=== PATIENT | male | born 1975 | race Caucasian/White ===

== ENCOUNTER 2017-01-20 20:23 | Emergency (ER) | payer OTHER ==
[2017-01-20 20:31] VITALS: BP 153/92
--- NOTE | 2017-01-20 20:37 | UC ---
Abdominal Pain Male HPI - HPI Summary HPI Summary: 41 year old male presents with severe epigastric abdominal pain. I will send him to the ER to rule out acute abdomen. - History of Current Complaint Chief Complaint: UCGI Stated Complaint: ABD PAIN,NAUSEA Time Seen by Provider: 01/20/17 20:37 - Allergies/Home Medications Allergies/Adverse Reactions: Allergies Allergy/AdvReac Type Severity Reaction Status Date / Time No Known Allergies Allergy Verified 01/20/17 20:31 Home Medications: Home Medications Fluticasone-Salmeterol 100-50* [Advair Diskus 100-50*] 1 puff INH WEEKLY [History Confirmed 01/20/17] Ibuprofen TAB* [Advil TAB*] 400 mg PO Q6H PRN 01/20/17 [History Confirmed ] PMH/Surg Hx/FS Hx/Imm Hx - Surgical History Surgical History: None - Social History Alcohol Use: None Substance Use Type: None Smoking Status (MU): Never Smoked Tobacco Review of Systems Constitutional: Negative Skin: Negative Eyes: Negative ENT: Negative Respiratory: Negative Cardiovascular: Negative Gastrointestinal: Abdominal Pain, Nausea Genitourinary: Negative Motor: Negative Neurovascular: Negative Musculoskeletal: Negative Neurological: Negative Psychological: Negative All Other Systems Reviewed And Are Negative: Yes Physical Exam Triage Information Reviewed: Yes Vital Signs: Initial Vital Signs Temp 36.9 C 01/20/17 20:28 Pulse 74 01/20/17 20:28 Resp 18 01/20/17 20:28 BP 153/92 01/20/17 20:28 Pulse Ox 99 01/20/17 20:28 Eye Exam: Normal ENT Exam: Normal Dental Exam: Normal Neck exam: Normal Neck: Positive: 1 Respiratory Exam: Normal Cardiovascular Exam: Normal Abdomen Description: Positive: Guarding Musculoskeletal Exam: Normal Neurological Exam: Normal Psychological Exam: Normal Skin Exam: Normal Abd Pain Male Course/Dx - Differential Dx/Clinical Impression Provider Diagnoses: severe abdominal pain. acute abdomen Discharge - Discharge Plan Condition: Stable Disposition: AGAINST MEDICAL ADVICE Referrals: No Primary Care Phys,NOPCP [Primary Care Provider] -
== END 2017-01-20 20:50 | disposition left against medical advice (07) ==
LOC: UCEAST 20:23
DX: R10.13 Epigastric pain (principal); R10.0 Acute abdomen
CPT/HCPCS: 99202; G0463

== ENCOUNTER 2017-01-20 21:04 | Emergency (ER) | payer OTHER ==
[2017-01-20] MEDS ORDERED: Ondansetron INJ* 2 MG/ML VIAL IV ONE (22:24)
[2017-01-20] MEDS ORDERED: NS 0.9% 1000 ML* 1,000 ML IV ONE (22:24)
[2017-01-20] MEDS ORDERED: Morphine INJ* 4 MG/ML 1 ML SYRINGE IV ONE (22:24)
[2017-01-20] MEDS ORDERED: Pantoprazole IV* 40 MG IV ONE (22:32)
[2017-01-20 22:34] LABS: Hematocrit 47 % (42-52); Hemoglobin 16.3 g/dl (14.0-18.0); Mean Corpuscular HGB Conc 35 g/dl (31-36); Mean Corpuscular Hemoglobin 32 pg (27-31); Mean Corpuscular Volume 93 fL (80-94); Mean Platelet Volume 8 um3 (7.4-10.4); Red Blood Count 5.06 10^6/ul (4.0-5.4); Red Cell Distribution Width 12 % (10.5-15); White Blood Count 10.4 10^3/ul (3.5-10.8)
[2017-01-20 22:49] LABS: Albumin 4.2 g/dL (3.2-5.2); BUN/Creatinine Ratio 13.9 (8-20); Calcium 9.4 mg/dL (8.6-10.3); EGFR Non-African American 70.8 (>60); Globulin 2.6 g/dL (2-4); Total Bilirubin 2.2 mg/dL (0.2-1.0); Total Protein 6.8 g/dL (6.4-8.9)
[2017-01-20 22:50] LABS: Troponin I 0.01 ng/mL (<0.04)
[2017-01-21] MEDS ORDERED: Iohexol 300* (CONTRAST) 10 ML SDV IV ONE (00:45)
[2017-01-21] MEDS ORDERED: Ondansetron INJ* 2 MG/ML VIAL IV ONE (00:55)
[2017-01-21] MEDS ORDERED: Ondansetron ODT TAB* 4 MG ONE (00:58)
[2017-01-21 02:01] LABS: Urine Bilirubin Negative (Negative); Urine Glucose Negative (Negative); Urine Nitrite Negative (Negative)
--- NOTE | 2017-01-21 02:22 | ED ---
Cortney Lau Alfonso, scribed for Alfredo Mendes on 01/20/17 at 2245 . Abdominal Pain/Male - HPI Summary HPI Summary: This patient is a 41 year old M presenting to [facility] with a chief complaint of diffuse abdominal pain since 2 days ago. The CC is described as an aching that is worse tonight. Pt rates the pain 6/10 in severity. Symptoms aggravated by eating and alleviated by nothing. Pt reports nausea, acid reflux, and loss of appetite. Pt denies fever, vomiting, and bowel symptoms. He reports his son had similar symptoms last week. Denies abdominal PSHx. PMHx of asthma. - History of Current Complaint Chief Complaint: EDAbdPain Stated Complaint: [facility]BD [facility] Time Seen by Provider: 01/20/17 21:25 Hx Obtained From: Patient Onset/Duration: Sudden Onset, Lasting Days - 2, Worse Since Timing: Constant Severity Initially: Moderate Severity Currently: Moderate Pain Intensity: 6 Pain Scale Used: 0-10 Numeric Location: Diffuse Character: Other: - Aching Aggravating Factor(s): Food Alleviating Factor(s): Nothing Associated Signs And Symptoms: Positive: Other - Pt reports nausea, acid reflux , and loss of appetite. Pt denies fever, vomiting, and bowel symptoms. - Allergies/Home Medications Allergies/Adverse Reactions: Allergies Allergy/AdvReac Type Severity Reaction Status Date / Time No Known Allergies Allergy Verified 01/20/17 20:31 PMH/Surg Hx/FS Hx/Imm Hx Respiratory History: Reports: Hx Asthma Sensory History: Denies: Hx Deafness Opthamlomology History: Denies: Hx Legally Blind Infectious Disease History: Yes Infectious Disease History: Denies: Traveled Outside the [place] in Last 30 Days - Family History Known Family History: Positive: Other - Cancer and asthma - Social History Alcohol Use: None Substance Use Type: Reports: Marijuana Substance Use Comment - Amount & Last Used: 1-2x/month Smoking Status (MU): Never Smoked Tobacco Review of Systems Negative: Fever Positive: Abdominal Pain, Nausea, Other - Positive loss of appetite and acid reflux; negative bowel symptoms. Negative: Vomiting All Other Systems Reviewed And Are Negative: Yes Physical Exam Triage Information Reviewed: Yes Vital Signs On Initial Exam: Initial Vitals Temp Pulse Resp BP Pulse Ox 98.3 F 85 20 158/93 100 01/20/17 21:30 01/20/17 21:30 01/20/17 21:30 01/20/17 21:30 01/20/17 21:30 Vital Signs Reviewed: Yes Appearance: Positive: Well-Appearing, No Pain Distress Skin: Positive: Warm, Skin Color Reflects Adequate Perfusion, Dry Head/Face: Positive: Normal Head/Face Inspection Eyes: Positive: EOMI, HIWOT ENT: Positive: Normal ENT inspection Neck: Positive: Supple, Nontender Respiratory/Lung Sounds: Positive: Clear to Auscultation, Breath Sounds Present Cardiovascular: Positive: RRR, Pulses are Symmetrical in both Upper and Lower Extremities Abdomen Description: Positive: Soft, Other: - Diffuse abdominal pain Bowel Sounds: Positive: Present Musculoskeletal: Positive: Normal, Strength/ROM Intact Neurological: Positive: Normal, Sensory/Motor Intact, Alert, Oriented to Person Place, Time - [place] Coma Scale Coma Scale Total: 15 Diagnostics - Vital Signs Vital Signs Temp Pulse Resp BP Pulse Ox 01/20/17 22:37 22 01/20/17 22:00 154/88 01/20/17 21:47 70 97 01/20/17 21:45 99.6 F 74 18 141/89 97 01/20/17 21:30 98.3 F 85 20 158/93 100 - Laboratory Lab Results: Lab Results 01/20/17 Range/Units 21:25 WBC 10.4 (3.5-10.8) 10^3/ul RBC 5.06 (4.0-5.4) 10^6/ul Hgb 16.3 (14.0-18.0) g/dl Hct 47 (42-52) % MCV 93 (80-94) fL MCH 32 H (27-31) pg MCHC 35 (31-36) g/dl RDW 12 (10.5-15) % Plt Count 238 (150-450) 10^3/ul MPV 8 (7.4-10.4) um3 Neut % (Auto) 75.7 (38-83) % Lymph % (Auto) 15.9 L (25-47) % [place] % (Auto) 7.1 (1-9) % Eos % (Auto) 1.0 (0-6) % Baso % (Auto) 0.3 (0-2) % Absolute Neuts (auto) 7.9 H (1.5-7.7) 10^3/ul Absolute Lymphs (auto) 1.7 (1.0-4.8) 10^3/ul Absolute Monos (auto) 0.7 (0-0.8) 10^3/ul Absolute Eos (auto) 0.1 (0-0.6) 10^3/ul Absolute Basos (auto) 0 (0-0.2) 10^3/ul Absolute Nucleated RBC 0.02 10^3/ul Nucleated RBC % 0.2 Result Diagrams: 01/20/17 21:25 01/20/17 21:25 Lab Statement: Any lab studies that have been ordered have been reviewed, and results considered in the medical decision making process. - CT A/P CT Interpretation Completed By: Radiologist - Questionable diarrheal illness without colonic wall inflammation. - EKG 2300 Cardiac Rate: NL - BPM 64 EKG Rhythm: Sinus Rhythm - Additional Comments Diagnostic Additional Comments: An US gallbladder reveals, per radiologist, a negative exam. Abdominal Pain Fem Course/Dx - Course Assessment/Plan: 41 year old M presents to the ED with a CC of diffuse abdominal pain since 2 days ago. Pt reports nausea, acid reflux, and loss of appetite. Pt denies fever, vomiting, and bowel symptoms. CT A/P reveals questionable diarrheal illness without colonic wall inflammation. An US gallbladder reveals, per radiologist, a negative exam. An EKG reveals NSR. Patient will be discharged with follow up from PCP. Pt is agreeable with this plan. - Diagnoses Provider Diagnoses: Pain, abdominal, nonspecific Discharge - Discharge Plan Condition: Stable Disposition: HOME Patient Education Materials: Acute Abdominal Pain (ED) Referrals: [facility] [Outside] - 3 Days The documentation as recorded by the Cortney anaya Alfonso accurately reflects the service I personally performed and the decisions made by , Alfredo Mendes.
[2017-01-21 04:01] VITALS: BP 120/75
--- NOTE | 2017-01-21 10:16 | RAD ---
CLINICAL HISTORY: Abdominal pain x4 days. Patient reports his son had similar symptoms a few weeks earlier. COMPARISON: Ultrasound of the right upper quadrant dated January 20, 2017 that did not reveal any acute abnormalities. TECHNIQUE: Contrast enhanced CT examination of the abdomen and pelvis from the lung bases through the initial tuberosities. The patient received 132 mL Omnipaque 300 intravenously prior to imaging.The patient received oral contrast as well prior to imaging. FINDINGS: VISUALIZED LUNG BASES: The visualized lung bases are grossly clear. There is no pleural effusion. ABDOMEN AND PELVIS: The liver, spleen, pancreas and adrenal glands are grossly normal in appearance. The gallbladder is normal. The kidneys are normal in appearance without focal mass, calcification or signs of hydronephrosis. Neural contrast has progressed only as far as the midportion of the small bowel. The small and large bowel are not distended. The patient's normal appendix is identified in the right lower quadrant (coronal image 45). Scattered air-fluid levels are seen in the small bowel and in the transverse colon. There is no definite bowel wall thickening. Scattered rectosigmoid diverticula are noted but none exhibit focal pericolonic inflammatory change. There is no gross retroperitoneal or mesenteric lymphadenopathy. The pelvic viscera is normal in appearance. The abdominal aorta and iliac arteries are normal in course and diameter. Mild degenerative changes of the lower thoracic and lumbar spine includes loss of intervertebral disc height and anterior marginal osteophyte formation at the lower thoracic spine. At the L5 vertebral body there is a fluid density structure measuring 1.5 cm and greatest cephalocaudal dimension.There are no sinister bone lesions. IMPRESSION: Air-fluid levels scattered in the small and large bowel could be seen in the setting of gastroenteritis of an indeterminate etiology.
--- NOTE | 2017-01-21 12:45 | RAD ---
HISTORY: Epigastric pain COMPARISONS: None TECHNIQUE: Multiple transverse and longitudinal ultrasound images were obtained of the right upper quadrant. FINDINGS: LIVER: The liver is normal in dimensions and echogenicity. Normal hepatic and portal venous blood flow is duplicated with color flow imaging. There is no gross intrahepatic biliary duct dilatation. GALLBLADDER AND EXTRAHEPATIC BILIARY DUCT: The gallbladder is normal in appearance without intraluminal stones or other soft tissue masses. There is no pericholecystic fluid or gallbladder wall thickening. The common bile duct measures a maximum diameter of 3 mm. PANCREAS: Overlying bowel gas prevents reliable visualization of the pancreas. RIGHT KIDNEY: The right kidney is normal in size, morphology and echogenicity. IMPRESSION: NO SONOGRAPHICALLY APPARENT ACUTE ABNORMALITY OF THE RIGHT UPPER QUADRANT.
== END 2017-01-21 02:30 | disposition home or self-care (01) ==
LOC: ED 21:04
DX: R10.9 Unspecified abdominal pain (principal); J45.909 Unspecified asthma, uncomplicated; K21.9 Gastro-esophageal reflux disease without esophagitis
CPT/HCPCS: 36415; 74177; 76705; 80053; 81003; 83605; 83690; 84484; 85025; 85610; 85730; 93005; 99283; A9270-GY; J2270; J2405; Q9967